=== PATIENT | male | born 2000 | race Caucasian/White ===

== ENCOUNTER 2023-02-09 10:20 | Emergency (ER) | payer BC ==
[~2023-02-09] VITALS: Ht 167.6 cm; Wt 74.8 kg
[2023-02-09 10:31] VITALS: BP 139/74; PULSE 82; RESP 20; TEMP 97.8; O2SAT 100
[2023-02-09] MEDS ORDERED: ONDA-188 PO (11:02)
[2023-02-09] MEDS ORDERED: BEN10 PO (11:02)
[2023-02-09] MEDS ORDERED: IMO2 PO (11:02)
[2023-02-09 11:08] VITALS: BP 139/74; PULSE 82; RESP 20; TEMP 97.8; O2SAT 100
== END 2023-02-09 11:08 | disposition home or self-care (01) ==
LOC: MED 10:20
DX: R19.7 Diarrhea, unspecified (principal); R11.2 Nausea with vomiting, unspecified; R10.9 Unspecified abdominal pain; Z79.899 Other long term (current) drug therapy
CPT/HCPCS: 99283